=== PATIENT | female | born 2000 | race Two or more races ===

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

== ENCOUNTER → 2021-02-04 | Outpatient (CLI) | payer BC, OTHER ==
--- NOTE | 2021-02-04 18:53 | REP ---
INDICATION: IUD LOCALIZATION. COMPARISON: None. TECHNIQUE: Transabdominal and endovaginal probes were utilized. FINDINGS: Bladder was empty on the transabdominal imaging having not been prepared. Uterus difficult to evaluate. Endovaginal probe uterus is anteverted at 7.3 x 3.6 x 5.1 cm it is slightly deviated towards the right side. There is a central endometrial stripe with a maximum thickness of 13.2 mm within that endometrial stripe is linear echogenic focus consistent with an IUD in its normal position. Distal tip is up cord the fundus of the endometrial cavity. There is some free fluid in the cul-de-sac. The right ovary is 4.7 x 2.6 x 3.7 cm. Within it is a somewhat thick walled anechoic focus 3 x 2.6 x 2.3 cm. Doppler tracing of the right ovary shows resistive index of 0.46 and there is blood flow in that ovary proper. The left ovary is 4.7 x 2.3 x 2.6 cm. It has a thin walled anechoic focus 3.5 x 1.9 x 1.2 cm without internal echoes or color flow within. The ovary itself does have color flow and Doppler interrogation shows resistive index of 0.67. Fluid is seen adjacent to the ovaries and in the cul-de-sac and small a moderate volume IMPRESSION: 1. Uterus anteverted and with an IUD in place in the endometrial cavity, position appears appropriate. Endometrial stripe thickness of 13.2 mm noted, no uterine abnormality. 2. Thick-walled 3 x 2.6 x 2.3 cm cyst in the right ovary which may be complex cyst. Normal blood flow to that ovary. No torsion. Normal Doppler tracing. No torsion. 3. Anechoic thin walled focus 3.5 x 1.2 x 1.9 cm in the left ovary consistent with a cyst. Normal Doppler tracing and color flow. Normal Doppler tracing. No torsion. 4. Small to moderate free fluid adjacent to the ovaries and in the cul-de-sac. <Electronically signed by Timmy Pantoja > 02/04/21 [id number]
== END ==
LOC: M RAD 16:13
PROVIDERS: ATTEND Physician Assistant
DX: Z30.431 Encounter for routine checking of intrauterine contraceptive device (principal)